=== PATIENT | male | born 1970 | race Caucasian/White ===

== ENCOUNTER 2017-06-01 14:54 | Inpatient (IN) | payer BC ==
[2017-06-01] MEDS ORDERED: ACETAMINOPHEN 325 MG TAB PO (17:00)
[2017-06-01] MEDS ORDERED: ONDANSETRON 4 MG INJ IV (17:00)
[2017-06-01] MEDS ORDERED: NACL 0.9% 3 ML SYG IV (18:00)
[2017-06-01] MEDS: FUROSEMIDE 40 MG INJ IV (18:15)
[2017-06-02] MEDS: FUROSEMIDE 40 MG INJ IV ×2 (05:52→17:09)
[2017-06-02 06:05] LABS: ADD MAN DIFF? NO
[2017-06-02 06:08] LABS: BASOPHILS % 0.1 % (0.0-2.0); HEMATOCRIT 42.2 % (42.0-52.0); HEMOGLOBIN 13.7 g/dl (14.0-18.0); LYMPHOCYTES # 1.1 10^3/ul (0.8-2.9); LYMPHOCYTES % 11.5 % (15.0-51.0); MEAN CORPUSCULAR HEMOGLOBIN 28.4 pg (29.0-33.0); MEAN CORPUSCULAR HGB CONC 32.5 g/dl (32.0-37.0); MEAN CORPUSCULAR VOLUME 87.4 fl (82.0-101.0); MEAN PLATELET VOLUME 11.6 fl (7.4-10.4); MONOCYTE # 0.8 10^3/ul (0.3-0.9); MONOCYTES % 8.2 % (0.0-11.0); NEUTROPHIL # 7.6 10^3/ul (1.6-7.5); NEUTROPHILS % 79.5 % (39.0-77.0); PLATELET COUNT 189 10^3/UL (140-415); RED BLOOD COUNT 4.83 10^6/ul (4.70-6.10); RED CELL DISTRIBUTION WIDTH 14.2 % (11.5-14.5)
[2017-06-02 06:08] LABS: WHITE BLOOD COUNT 9.5 10^3/ul (4.8-10.8)
[2017-06-02 06:30] LABS: ALANINE AMINOTRANSFERASE 45 IU/L (13-69); ALBUMIN 3.2 g/dl (3.3-4.9); ALBUMIN/GLOBULIN RATIO 1.18; ALKALINE PHOSPHATASE 50 IU/L (42-121); ANION GAP 14 (8-16); ASPARTATE AMINO TRANSFERASE 30 IU/L (15-46); BILIRUBIN,INDIRECT 1.3 mg/dl (0-1.1); BILIRUBIN,TOTAL 1.3 mg/dl (0.2-1.3); BLOOD UREA NITROGEN 22 mg/dl (7-20); CALCIUM 8.4 mg/dl (8.4-10.2); CARBON DIOXIDE 29 mmol/L (21-31); CHLORIDE 105 mmol/L (97-110); CREATININE 0.95 mg/dl (0.61-1.24); GLUCOSE 201 mg/dl (70-220); POTASSIUM 4.1 mmol/L (3.5-5.1); SODIUM 144 mmol/L (135-144); TOTAL PROTEIN 5.9 g/dl (6.1-8.1)
[2017-06-02] MEDS: LISINOPRIL 5 MG TAB PO (09:03)
[2017-06-02] MEDS: ENOXAPARIN 40 MG/0.4 ML SYG SC (09:03)
[2017-06-02] MEDS: DIGOXIN 0.25 MG TAB PO (13:44)
[2017-06-02] MEDS: PANTOPRAZOLE (EC) 40 MG TAB PO (17:09)
[2017-06-02] MEDS: INSULIN GLARGINE [LANtus] 3 ML PEN SC (20:00)
[2017-06-02] MEDS ORDERED: GLUCOSE GEL 15 GRAM TUBE BUCCAL (20:00)
[2017-06-02] MEDS ORDERED: GLUCAGON 1 MG INJ IM (20:00)
[2017-06-02] MEDS ORDERED: DEXTROSE 50% 50 ML SYRINGE IV ×2 (20:00)
[2017-06-02] MEDS ORDERED: GLUCOSE GEL 15 GRAM TUBE PO ×2 (20:00)
[2017-06-02] MEDS: INSULIN ASPART [NOVOLOG] 3 ML PEN SC (21:00)
[2017-06-03] MEDS: ACCU-CHEK XX (01:17)
[2017-06-03] MEDS: PANTOPRAZOLE (EC) 40 MG TAB PO ×2 (05:23→17:48)
[2017-06-03] MEDS: FUROSEMIDE 40 MG INJ IV ×2 (05:26→17:48)
[2017-06-03 07:16] LABS: HEMOGLOBIN A1C 7.3 % (0-5.9)
[2017-06-03 07:21] LABS: ANION GAP 17 (8-16); BLOOD UREA NITROGEN 29 mg/dl (7-20); CALCIUM 8.9 mg/dl (8.4-10.2); CARBON DIOXIDE 28 mmol/L (21-31); CHLORIDE 102 mmol/L (97-110); CREATININE 1.03 mg/dl (0.61-1.24); GLUCOSE 176 mg/dl (70-220); POTASSIUM 3.6 mmol/L (3.5-5.1); SODIUM 143 mmol/L (135-144)
[2017-06-03] MEDS: LISINOPRIL 5 MG TAB PO (08:22)
[2017-06-03] MEDS: ENOXAPARIN 40 MG/0.4 ML SYG SC (08:24)
[2017-06-03] MEDS: INSULIN ASPART [NOVOLOG] 3 ML PEN SC ×7 (08:25→20:18)
[2017-06-03] MEDS: DIGOXIN 0.25 MG TAB PO (12:43)
[2017-06-03] MEDS: ACETAMINOPHEN 325 MG TAB PO (14:41)
[2017-06-03] MEDS: INSULIN GLARGINE [LANtus] 3 ML PEN SC (20:15)
[2017-06-04] MEDS: ACCU-CHEK XX (02:25)
[2017-06-04] MEDS: FUROSEMIDE 40 MG INJ IV (05:13)
[2017-06-04] MEDS: PANTOPRAZOLE (EC) 40 MG TAB PO (05:13)
[2017-06-04] MEDS: INSULIN ASPART [NOVOLOG] 3 ML PEN SC ×4 (08:18→12:00)
[2017-06-04] MEDS: LISINOPRIL 5 MG TAB PO (08:19)
[2017-06-04] MEDS: ENOXAPARIN 40 MG/0.4 ML SYG SC (08:19)
[2017-06-04] MEDS: DIGOXIN 0.25 MG TAB PO (12:26)
== END 2017-06-04 15:30 | disposition home or self-care (01) | DRG 293 ==
LOC: PP2 06-02 15:30 → E/R 14:54 → MS3 16:50
DX: I11.0 Hypertensive heart disease with heart failure (principal); E11.9 Type 2 diabetes mellitus without complications; I50.23 Acute on chronic systolic (congestive) heart failure; R10.13 Epigastric pain; Z79.84 Long term (current) use of oral hypoglycemic drugs; Z87.891 Personal history of nicotine dependence
CPT/HCPCS: 71046; 80048; 80053; 82962; 83036; 83735; 85025; 93306; 96374; 99285-25

== ENCOUNTER 2017-10-09 07:04 | Emergency (ER) | payer BC ==
[2017-10-09] MEDS: KETOROLAC 30 MG INJ IV (07:36)
[2017-10-09] MEDS: ONDANSETRON 4 MG INJ IV (07:36)
[2017-10-09 07:47] LABS: ADD MAN DIFF? NO
[2017-10-09 07:57] LABS: BASOPHILS % 0.5 % (0.0-2.0); EOSINOPHILS % 0.2 % (0.0-7.0); HEMATOCRIT 45.2 % (42.0-52.0); HEMOGLOBIN 14.3 g/dl (14.0-18.0); LYMPHOCYTES # 1.5 10^3/ul (0.8-2.9); MEAN CORPUSCULAR HEMOGLOBIN 29.5 pg (29.0-33.0); MEAN CORPUSCULAR HGB CONC 31.6 g/dl (32.0-37.0); MEAN CORPUSCULAR VOLUME 93.4 fl (82.0-101.0); MEAN PLATELET VOLUME 12.4 fl (7.4-10.4); MONOCYTE # 0.6 10^3/ul (0.3-0.9); MONOCYTES % 6.4 % (0.0-11.0); NEUTROPHIL # 6.4 10^3/ul (1.6-7.5); NEUTROPHILS % 74.3 % (39.0-77.0); PLATELET COUNT 182 10^3/UL (140-415); RED BLOOD COUNT 4.84 10^6/ul (4.70-6.10); RED CELL DISTRIBUTION WIDTH 15.4 % (11.5-14.5)
[2017-10-09 07:57] LABS: WHITE BLOOD COUNT 8.6 10^3/ul (4.8-10.8)
[2017-10-09 08:09] LABS: ADD UMIC YES; UR ASCORBIC ACID NEGATIVE (NEGATIVE); UR BILIRUBIN (Dip) NEGATIVE (NEGATIVE); UR BLOOD (Dip) 1+ mg/dL (NEGATIVE); UR CLARITY CLEAR (CLEAR); UR COLOR YELLOW (YELLOW); UR GLUCOSE (Dip) NEGATIVE (NEGATIVE); UR KETONES (Dip) NEGATIVE (NEGATIVE); UR LEUKOCYTE ESTERASE (Dip) NEGATIVE Leu/ul (NEGATIVE); UR NITRITE (Dip) NEGATIVE (NEGATIVE); UR RBC 3 /HPF (0-5); UR SPECIFIC GRAVITY (Dip) 1.013 (1.003-1.030); UR TOTAL PROTEIN (Dip) 1+ mg/dl (NEGATIVE); UR UROBILINOGEN (Dip) NEGATIVE (NEGATIVE); UR WBC 1 /HPF (0-5)
[2017-10-09 08:34] LABS: ALANINE AMINOTRANSFERASE 45 IU/L (13-69); ALBUMIN 4.5 g/dl (3.3-4.9); ALBUMIN/GLOBULIN RATIO 1.32; ALKALINE PHOSPHATASE 71 IU/L (42-121); ANION GAP 21 (8-16); ASPARTATE AMINO TRANSFERASE 46 IU/L (15-46); BILIRUBIN,INDIRECT 1.5 mg/dl (0-1.1); BILIRUBIN,TOTAL 1.5 mg/dl (0.2-1.3); BLOOD UREA NITROGEN 27 mg/dl (7-20); CARBON DIOXIDE 23 mmol/L (21-31); CHLORIDE 101 mmol/L (97-110); CREATININE 1.41 mg/dl (0.61-1.24); GLUCOSE 259 mg/dl (70-220); LIPASE 150 U/L (23-300); POTASSIUM 4.6 mmol/L (3.5-5.1); SODIUM 140 mmol/L (135-144); TOTAL PROTEIN 7.9 g/dl (6.1-8.1)
== END 2017-10-09 09:12 | disposition home or self-care (01) ==
LOC: FTE 07:04
DX: R10.9 Unspecified abdominal pain (principal); I10 Essential (primary) hypertension; E11.9 Type 2 diabetes mellitus without complications; I50.9 Heart failure, unspecified; Z87.891 Personal history of nicotine dependence; Z79.84 Long term (current) use of oral hypoglycemic drugs; Z95.0 Presence of cardiac pacemaker
CPT/HCPCS: 36415; 76775; 80053; 81001; 83690; 85025; 96374; 96375; 99285-25

== ENCOUNTER 2017-10-24 02:06 | Inpatient (IN) | payer BC ==
[2017-10-24 03:42] LABS: ADD MAN DIFF? NO
[2017-10-24 03:52] LABS: BASOPHILS % 0.6 % (0.0-2.0); EOSINOPHILS # 0.1 10^3/ul (0.0-0.5); EOSINOPHILS % 1.1 % (0.0-7.0); HEMATOCRIT 40.7 % (42.0-52.0); LYMPHOCYTES # 1.5 10^3/ul (0.8-2.9); LYMPHOCYTES % 21.1 % (15.0-51.0); MEAN CORPUSCULAR HEMOGLOBIN 29.7 pg (29.0-33.0); MEAN CORPUSCULAR HGB CONC 31.9 g/dl (32.0-37.0); MEAN CORPUSCULAR VOLUME 92.9 fl (82.0-101.0); MEAN PLATELET VOLUME 11.6 fl (7.4-10.4); MONOCYTE # 0.6 10^3/ul (0.3-0.9); MONOCYTES % 7.9 % (0.0-11.0); NEUTROPHIL # 4.7 10^3/ul (1.6-7.5); NEUTROPHILS % 67.7 % (39.0-77.0); PLATELET COUNT 191 10^3/UL (140-415); RED BLOOD COUNT 4.38 10^6/ul (4.70-6.10); RED CELL DISTRIBUTION WIDTH 14.9 % (11.5-14.5)
[2017-10-24 04:10] LABS: ALANINE AMINOTRANSFERASE 40 IU/L (13-69); ALBUMIN 3.9 g/dl (3.3-4.9); ALBUMIN/GLOBULIN RATIO 1.25; ALKALINE PHOSPHATASE 78 IU/L (42-121); ANION GAP 12 (8-16); ASPARTATE AMINO TRANSFERASE 32 IU/L (15-46); BILIRUBIN,INDIRECT 0.9 mg/dl (0-1.1); BILIRUBIN,TOTAL 0.9 mg/dl (0.2-1.3); BLOOD UREA NITROGEN 27 mg/dl (7-20); CALCIUM 8.8 mg/dl (8.4-10.2); CARBON DIOXIDE 28 mmol/L (21-31); CHLORIDE 103 mmol/L (97-110); CREATININE 1.34 mg/dl (0.61-1.24); GLUCOSE 171 mg/dl (70-220); POTASSIUM 4.1 mmol/L (3.5-5.1); SODIUM 139 mmol/L (135-144)
[2017-10-24 04:22] LABS: B-TYPE NATRIURETIC PEPTIDE 2560 PG/ML (0-125); TROPONIN-I 0.012 ng/ml (0.000-0.120)
[2017-10-24 10:01] LABS: CREATINE KINASE 81 IU/L (23-200)
[2017-10-24 10:15] LABS: TROPONIN-I < 0.010 ng/ml (0.000-0.120)
[2017-10-24 10:33] LABS: CK-MB 0.84 ng/ml (0.0-2.4)
[2017-10-24] MEDS ORDERED: ACETAMINOPHEN 325 MG TAB PO (11:00)
[2017-10-24] MEDS ORDERED: METOCLOPRAMIDE 10 MG INJ IV (11:00)
[2017-10-24] MEDS ORDERED: HYDROCODONE/APAP (5/325) TAB PO (11:00)
[2017-10-24] MEDS ORDERED: NACL 0.9% 3 ML SYG IV (11:00)
[2017-10-24] MEDS ORDERED: ONDANSETRON 4 MG INJ IV (11:00)
[2017-10-24] MEDS ORDERED: DEXTROSE 50% 50 ML SYRINGE IV ×2 (12:30)
[2017-10-24] MEDS ORDERED: GLUCOSE GEL 15 GRAM TUBE BUCCAL (12:30)
[2017-10-24] MEDS ORDERED: GLUCOSE GEL 15 GRAM TUBE PO ×2 (12:30)
[2017-10-24] MEDS ORDERED: GLUCAGON 1 MG INJ IM (12:30)
[2017-10-24] MEDS: AMIODARONE 200 MG TAB PO (12:46)
[2017-10-24] MEDS: FUROSEMIDE 40 MG INJ IV (12:47)
[2017-10-24 16:45] LABS: CREATINE KINASE 62 IU/L (23-200)
[2017-10-24 16:57] LABS: CK INDEX 1.1; TROPONIN-I < 0.010 ng/ml (0.000-0.120)
[2017-10-24 17:03] LABS: CK-MB 0.69 ng/ml (0.0-2.4)
[2017-10-24] MEDS: INSULIN ASPART [NOVOLOG] 3 ML PEN SC ×2 (21:00→22:24)
[2017-10-24] MEDS: ATORVASTATIN 20 MG TAB PO (22:20)
[2017-10-25] MEDS: ACCU-CHEK XX (02:00)
[2017-10-25 05:42] LABS: ADD MAN DIFF? NO
[2017-10-25 06:01] LABS: BASOPHIL # 0.1 10^3/ul (0.0-0.1); BASOPHILS % 0.7 % (0.0-2.0); EOSINOPHILS # 0.1 10^3/ul (0.0-0.5); EOSINOPHILS % 1.1 % (0.0-7.0); HEMATOCRIT 40.5 % (42.0-52.0); LYMPHOCYTES # 1.8 10^3/ul (0.8-2.9); LYMPHOCYTES % 25.3 % (15.0-51.0); MEAN CORPUSCULAR HEMOGLOBIN 29.8 pg (29.0-33.0); MEAN CORPUSCULAR HGB CONC 32.1 g/dl (32.0-37.0); MEAN CORPUSCULAR VOLUME 92.9 fl (82.0-101.0); MEAN PLATELET VOLUME 12.1 fl (7.4-10.4); MONOCYTE # 0.5 10^3/ul (0.3-0.9); MONOCYTES % 7.3 % (0.0-11.0); NEUTROPHIL # 4.5 10^3/ul (1.6-7.5); PLATELET COUNT 204 10^3/UL (140-415); RED BLOOD COUNT 4.36 10^6/ul (4.70-6.10); RED CELL DISTRIBUTION WIDTH 14.9 % (11.5-14.5)
[2017-10-25 06:21] LABS: HDL CHOLESTEROL 16 mg/dl (28-71); LDL CHOLESTEROL,CALCULATED 61 mg/dl; TRIGLYCERIDES 98 mg/dl (0-149)
[2017-10-25 06:21] LABS: CHOLESTEROL 97 mg/dl (100-200)
[2017-10-25 06:32] LABS: ANION GAP 13 (8-16); BLOOD UREA NITROGEN 25 mg/dl (7-20); CALCIUM 9.1 mg/dl (8.4-10.2); CARBON DIOXIDE 26 mmol/L (21-31); CHLORIDE 105 mmol/L (97-110); CREATININE 1.07 mg/dl (0.61-1.24); GLUCOSE 168 mg/dl (70-220); MAGNESIUM 2.1 mg/dl (1.7-2.5); PHOSPHORUS 3.4 mg/dl (2.5-4.9); POTASSIUM 4.2 mmol/L (3.5-5.1); SODIUM 140 mmol/L (135-144)
[2017-10-25] MEDS: PANTOPRAZOLE (EC) 40 MG TAB PO (06:43)
[2017-10-25 06:48] LABS: HEMOGLOBIN A1C 8.4 % (0-5.9)
[2017-10-25] MEDS: AMIODARONE 200 MG TAB PO (08:48)
[2017-10-25] MEDS: FUROSEMIDE 40 MG INJ IV ×3 (08:48→20:52)
[2017-10-25] MEDS: INSULIN ASPART [NOVOLOG] 3 ML PEN SC ×4 (08:54→20:56)
[2017-10-25] MEDS: ENOXAPARIN 30 MG/0.3 ML SYG SC (08:55)
[2017-10-25] MEDS: ATORVASTATIN 20 MG TAB PO (20:52)
[2017-10-25] MEDS: INSULIN GLARGINE [LANTus] (100 UNITS/ML) SYG SC (20:54)
[2017-10-26] MEDS: ACCU-CHEK XX (02:13)
[2017-10-26 06:38] LABS: MAGNESIUM 2.1 mg/dl (1.7-2.5)
[2017-10-26 06:44] LABS: ANION GAP 14 (8-16); BLOOD UREA NITROGEN 34 mg/dl (7-20); CALCIUM 8.9 mg/dl (8.4-10.2); CARBON DIOXIDE 27 mmol/L (21-31); CHLORIDE 105 mmol/L (97-110); CREATININE 1.34 mg/dl (0.61-1.24); GLUCOSE 148 mg/dl (70-220); POTASSIUM 3.8 mmol/L (3.5-5.1); SODIUM 142 mmol/L (135-144)
[2017-10-26] MEDS: PANTOPRAZOLE (EC) 40 MG TAB PO (06:48)
[2017-10-26] MEDS: INSULIN ASPART [NOVOLOG] 3 ML PEN SC ×4 (07:53→20:49)
[2017-10-26] MEDS: FUROSEMIDE 40 MG INJ IV ×3 (08:41→20:53)
[2017-10-26] MEDS: AMIODARONE 200 MG TAB PO (08:41)
[2017-10-26] MEDS: ENOXAPARIN 30 MG/0.3 ML SYG SC (08:46)
[2017-10-26] MEDS: ONDANSETRON 4 MG TAB PO (19:37)
[2017-10-26] MEDS: INSULIN GLARGINE [LANTus] (100 UNITS/ML) SYG SC (19:48)
[2017-10-26] MEDS: ATORVASTATIN 20 MG TAB PO (20:45)
[2017-10-27] MEDS: ACCU-CHEK XX (02:00)
[2017-10-27] MEDS: PANTOPRAZOLE (EC) 40 MG TAB PO (05:18)
[2017-10-27 06:28] LABS: ADD MAN DIFF? NO
[2017-10-27 06:34] LABS: BASOPHIL # 0.1 10^3/ul (0.0-0.1); BASOPHILS % 0.8 % (0.0-2.0); EOSINOPHILS # 0.1 10^3/ul (0.0-0.5); EOSINOPHILS % 0.9 % (0.0-7.0); HEMATOCRIT 43.1 % (42.0-52.0); HEMOGLOBIN 13.6 g/dl (14.0-18.0); LYMPHOCYTES # 1.9 10^3/ul (0.8-2.9); LYMPHOCYTES % 25.3 % (15.0-51.0); MEAN CORPUSCULAR HEMOGLOBIN 29.9 pg (29.0-33.0); MEAN CORPUSCULAR HGB CONC 31.6 g/dl (32.0-37.0); MEAN CORPUSCULAR VOLUME 94.7 fl (82.0-101.0); MEAN PLATELET VOLUME 12.1 fl (7.4-10.4); MONOCYTE # 0.6 10^3/ul (0.3-0.9); MONOCYTES % 8.2 % (0.0-11.0); NEUTROPHIL # 4.8 10^3/ul (1.6-7.5); NEUTROPHILS % 64.1 % (39.0-77.0); PLATELET COUNT 187 10^3/UL (140-415); RED BLOOD COUNT 4.55 10^6/ul (4.70-6.10); RED CELL DISTRIBUTION WIDTH 14.9 % (11.5-14.5)
[2017-10-27 06:34] LABS: WHITE BLOOD COUNT 7.4 10^3/ul (4.8-10.8)
[2017-10-27 07:34] LABS: B-TYPE NATRIURETIC PEPTIDE 2990 PG/ML (0-125)
[2017-10-27 07:43] LABS: ANION GAP 12 (8-16); BLOOD UREA NITROGEN 31 mg/dl (7-20); CALCIUM 8.9 mg/dl (8.4-10.2); CARBON DIOXIDE 29 mmol/L (21-31); CHLORIDE 103 mmol/L (97-110); CREATININE 1.36 mg/dl (0.61-1.24); GLUCOSE 131 mg/dl (70-220); POTASSIUM 4.1 mmol/L (3.5-5.1); SODIUM 140 mmol/L (135-144)
[2017-10-27] MEDS: INSULIN ASPART [NOVOLOG] 3 ML PEN SC ×2 (08:04→12:04)
[2017-10-27] MEDS: AMIODARONE 200 MG TAB PO (08:05)
[2017-10-27] MEDS: FUROSEMIDE 40 MG INJ IV ×2 (08:05→12:41)
[2017-10-27] MEDS: ENOXAPARIN 30 MG/0.3 ML SYG SC (08:06)
== END 2017-10-27 15:53 | disposition home or self-care (01) | DRG 291 ==
LOC: E/R 02:06 → 6WM 04:00
DX: I13.0 Hypertensive heart and chronic kidney disease with heart failure and stage 1 through stage 4 chronic kidney disease, or unspecified chronic kidney disease (principal); I50.23 Acute on chronic systolic (congestive) heart failure; N17.9 Acute kidney failure, unspecified; I42.9 Cardiomyopathy, unspecified; Z95.0 Presence of cardiac pacemaker; R00.2 Palpitations; N18.9 Chronic kidney disease, unspecified; E78.00 Pure hypercholesterolemia, unspecified; E11.65 Type 2 diabetes mellitus with hyperglycemia; R06.01 Orthopnea
CPT/HCPCS: 36415; 71045; 76775; 80048; 80053; 80061; 82550; 82553; 82962; 83036; 83735; 83880; 84100; 84484; 85025; 93005; 99285-25; G0378

== ENCOUNTER 2018-07-03 10:37 | Observation (INO) | payer OTHER, BC ==
[~2018-07-03 10:37] MED LIST: DESFLURANE 15 MIN
[2018-07-03] MEDS ORDERED: ETOMIDATE 20 MG INJ (13:02)
[2018-07-03] MEDS ORDERED: ROCURONIUM 50 MG INJ ×2 (13:02→15:30)
[2018-07-03] MEDS ORDERED: MIDAZOLAM 1 MG/ML 2 ML INJ ×2 (13:02)
[2018-07-03] MEDS ORDERED: ONDANSETRON 4 MG INJ (13:02)
[2018-07-03] MEDS ORDERED: FENTAnyl 50 MCG/ML VIAL ×2 (13:02→13:45)
[2018-07-03] MEDS ORDERED: METOCLOPRAMIDE 10 MG INJ (13:03)
[2018-07-03] MEDS ORDERED: ROPIVACAINE 0.2% 20 ML VIAL (13:04)
[2018-07-03] MEDS ORDERED: CEFAZOLIN 1 GM INJ (13:27)
[2018-07-03] MEDS: POLYMYXIN/BACITRACIN 1L IRRIG (13:49)
[2018-07-03] MEDS: BUPIVACAINE 0.25% (MPF) 30 ML INJ (13:49)
[2018-07-03] MEDS ORDERED: GLYCOPYRROLATE 0.4 MG INJ (15:30)
[2018-07-03] MEDS ORDERED: NEOSTIGMINE 3 MG/3 ML SYRINGE (15:30)
[2018-07-03] MEDS ORDERED: SUGAMMADEX SODIUM 200 MG/2 ML VIAL IV (15:43)
[2018-07-03] MEDS ORDERED: ONDANSETRON 4 MG INJ IV ×2 (16:00→16:30)
[2018-07-03] MEDS ORDERED: morphine 2 MG INJ IV (16:00)
[2018-07-03] MEDS ORDERED: HYDROCODONE/APAP (5/325) TAB PO (16:00)
[2018-07-03] MEDS ORDERED: HYDROmorphONE 1 MG/5 ML IV SYRINGE IV ×3 (16:27→16:30)
[2018-07-03] MEDS ORDERED: ALBUTEROL 0.083% (NEB) 2.5 MG/3 ML AMP HHN (16:30)
[2018-07-03] MEDS ORDERED: hydrALAzine 20 MG INJ IV (16:30)
[2018-07-03] MEDS ORDERED: DIPHENHYDRAMINE 50 MG INJ IV (16:30)
[2018-07-03] MEDS ORDERED: OXYCODONE/ACETAMINOPHEN (5/325) TAB PO ×2 (16:30)
[2018-07-03] MEDS ORDERED: FENTAnyl 50 MCG/ML VIAL IV ×3 (16:30)
[2018-07-03] MEDS ORDERED: MEPERIDINE 25 MG INJ IV (16:30)
[2018-07-03] MEDS: HYDROmorphONE 1 MG/5 ML IV SYRINGE IV (16:32)
[2018-07-03] MEDS ORDERED: ESMOLOL 10 ML (17:10)
[2018-07-03] MEDS ORDERED: METOPROLOL 5 MG INJ (17:10)
[2018-07-03] MEDS: INSULIN ASPART [NOVOLOG] 3 ML PEN SC ×3 (17:55→21:00)
[2018-07-03] MEDS ORDERED: GLUCOSE GEL 15 GRAM TUBE PO ×2 (19:00)
[2018-07-03] MEDS ORDERED: GLUCAGON 1 MG INJ IM (19:00)
[2018-07-03] MEDS ORDERED: DEXTROSE 50% 50 ML SYRINGE IV ×2 (19:00)
[2018-07-03] MEDS ORDERED: GLUCOSE GEL 15 GRAM TUBE BUCCAL (19:00)
[2018-07-03] MEDS: ACETAMINOPHEN 325 MG TAB PO (21:51)
[2018-07-03] MEDS: DOCUSATE SODIUM 100 MG CAP PO (21:51)
[2018-07-03] MEDS: FAMOTIDINE 20 MG INJ IV (21:51)
[2018-07-03] MEDS: POTASSIUM CHLORIDE (SR) 8 MEQ CAP PO (21:51)
[2018-07-03] MEDS: INSULIN GLARGINE [LANTus] (100 UNITS/ML) SYG SC (22:07)
[2018-07-04] MEDS: ACCU-CHEK XX (02:00)
[2018-07-04] MEDS: ACETAMINOPHEN 325 MG TAB PO ×2 (03:27→15:12)
[2018-07-04] MEDS: BUMETANIDE 1 MG TAB PO (05:47)
[2018-07-04 06:39] LABS: ADD MAN DIFF? NO
[2018-07-04 06:43] LABS: BASOPHIL # 0.1 10^3/ul (0.0-0.1); BASOPHILS % 0.7 % (0.0-2.0); EOSINOPHILS # 0.1 10^3/ul (0.0-0.5); EOSINOPHILS % 0.7 % (0.0-7.0); HEMATOCRIT 36.5 % (42.0-52.0); HEMOGLOBIN 11.9 g/dl (14.0-18.0); LYMPHOCYTES % 13.5 % (15.0-51.0); MEAN CORPUSCULAR HEMOGLOBIN 29.5 pg (29.0-33.0); MEAN CORPUSCULAR HGB CONC 32.6 g/dl (32.0-37.0); MEAN CORPUSCULAR VOLUME 90.6 fl (82.0-101.0); MEAN PLATELET VOLUME 11.6 fl (7.4-10.4); MONOCYTES % 13.6 % (0.0-11.0); NEUTROPHILS % 70.8 % (39.0-77.0); PLATELET COUNT 169 10^3/UL (140-415); RED BLOOD COUNT 4.03 10^6/ul (4.70-6.10); RED CELL DISTRIBUTION WIDTH 17.1 % (11.5-14.5)
[2018-07-04 06:43] LABS: WHITE BLOOD COUNT 7.1 10^3/ul (4.8-10.8)
[2018-07-04 07:03] LABS: PROTIME 20.1 Sec (11.9-14.9); PT RATIO 1.6
[2018-07-04 07:12] LABS: ANION GAP 10 (5-13); BLOOD UREA NITROGEN 19 mg/dl (7-20); CALCIUM 8.9 mg/dl (8.4-10.2); CARBON DIOXIDE 23 mmol/L (21-31); CHLORIDE 108 mmol/L (97-110); CREATININE 1.02 mg/dl (0.61-1.24); Estimated GFR > 60 mL/min (>60); GLUCOSE 135 mg/dl (70-220); POTASSIUM 3.9 mmol/L (3.5-5.1); SODIUM 141 mmol/L (135-144)
[2018-07-04] MEDS: INSULIN ASPART [NOVOLOG] 3 ML PEN SC ×5 (07:55→13:01)
[2018-07-04] MEDS: FAMOTIDINE 20 MG INJ IV (08:52)
[2018-07-04] MEDS: POTASSIUM CHLORIDE (SR) 8 MEQ CAP PO (08:52)
[2018-07-04] MEDS: PANTOPRAZOLE (EC) 40 MG TAB PO (08:52)
[2018-07-04] MEDS: DOCUSATE SODIUM 100 MG CAP PO ×2 (08:52→15:12)
[2018-07-04] MEDS: HYDROCODONE/APAP (5/325) TAB PO ×2 (09:43→16:37)
== END 2018-07-04 17:30 | disposition home or self-care (01) ==
LOC: SDS 10:37 → REC 16:01 → TEL 17:17
PROVIDERS: Surgery
DX: K40.90 Unilateral inguinal hernia, without obstruction or gangrene, not specified as recurrent (principal); R18.8 Other ascites; I11.0 Hypertensive heart disease with heart failure; I50.9 Heart failure, unspecified; I43 Cardiomyopathy in diseases classified elsewhere; E11.9 Type 2 diabetes mellitus without complications; Z79.4 Long term (current) use of insulin; Z79.82 Long term (current) use of aspirin
CPT/HCPCS: 10140; 80048; 82962; 85025; 85610; 88302; G0378